=== PATIENT | female | born 1990 | race Caucasian/White ===

== ENCOUNTER 2016-12-31 20:36 | Emergency (ER) | payer OTHER ==
[~2016-12-31] VITALS: Ht 182.9 cm; Wt 106.4 kg
[~2016-12-31 20:36] MED LIST: BENTYL10 MG PO; BUPROPION XL150 MG PO; ENDOCET 5-3251 EACH PO; IBUPROFEN800 MG PO; IRON325 MG PO; MOBIC7.5 MG PO; PERCOCET 5/31 TABLET PO; PRENATAL TABLE1 EAC3 PO; PROMETHAZINE HC25 M1 PO; SERTRALINE HCL50 MG PO
[2016-12-31] MEDS ORDERED: MEDROL DOSEPAK4 MG PO (21:48)
[2016-12-31] MEDS ORDERED: MOTRIN800 MG PO (21:48)
[2016-12-31 22:19] VITALS: BP 109/64
== END 2016-12-31 22:21 | disposition home or self-care (01) ==
LOC: RME 20:36 → EME 20:36 → RME 22:21
DX: J02.9 Acute pharyngitis, unspecified (principal)
CPT/HCPCS: 87651 90; 99281; 99283; J1885